=== PATIENT | male | born 1945 | race Native Hawaiian/Other Pacific Islander ===

== ENCOUNTER 2020-03-30 19:30 | Emergency (ER) | payer OTHER ==
[~2020-03-30] VITALS: Ht 167.6 cm; Wt 91.6 kg
[2020-03-30 19:45] VITALS: BP 132/93
[2020-03-30 20:14] LABS: PLATELET COUNT 224 K/uL (142-355)
[2020-03-31] MEDS ORDERED: ASA LOW DOSE81 MG PO (03:50)
[2020-03-31] MEDS ORDERED: ELIQUIS5 MG PO (03:51)
[2020-03-31] MEDS ORDERED: FLONASE AL50 MCG/ACT INH (03:53)
[2020-03-31] MEDS ORDERED: MEMA5TAB PO (03:54)
[2020-03-31] MEDS ORDERED: DOCU100C10 PO (03:57)
[2020-03-31] MEDS ORDERED: DULO60CA2 PO (03:59)
[2020-03-31] MEDS ORDERED: AMLODIPINE BESYLATE PO (04:02)
[2020-03-31] MEDS ORDERED: LIPITOR40 MG PO (04:07)
[2020-03-31] MEDS ORDERED: DONEPEZIL HYDRO10 M1 PO (04:08)
[2020-03-31] MEDS ORDERED: MELATONIN3 M1 PO (04:09)
[2020-03-31] MEDS ORDERED: SEROQUEL200 MG PO (04:10)
[2020-03-31] MEDS ORDERED: FURO20TA67 PO (04:11)
[2020-03-31] MEDS ORDERED: CETI10TA PO (04:12)
[2020-03-31] MEDS ORDERED: TREXALL7.5 MG PO (04:14)
[2020-03-31] MEDS ORDERED: GABA400C2 PO (04:16)
[2020-03-31] MEDS ORDERED: BUSP15TAB2 PO (04:17)
[2020-03-31] MEDS ORDERED: DULCOLAX5 MG PO (04:19)
[2020-03-31] MEDS ORDERED: OXYC5TAB53 PO (04:20)
[2020-03-31] MEDS ORDERED: ACET-689 PO (04:26)
== END 2020-03-30 22:30 | disposition other institution (70) ==
LOC: ED 19:36
PROVIDERS: Family Medicine
DX: R46.89 Other symptoms and signs involving appearance and behavior (principal); J06.9 Acute upper respiratory infection, unspecified; Z11.59 Encounter for screening for other viral diseases; Z04.6 Encounter for general psychiatric examination, requested by authority
CPT/HCPCS: 36415; 80053; 81000; 85027; 87635; 93005; 99285; U0003